=== PATIENT | male | born 1935 | race Caucasian/White ===

== ENCOUNTER → 2017-05-08 19:58 | Outpatient (CLI) | payer MEDICARE, OTHER ==
[2016-06-23 09:17] VITALS: BMI 25.1
[~2017-05-08 19:58] MED LIST: ACETAMINOPHEN325 MG PO; ADVIL200 MG PO; AMBIEN10 MG PO; BAYER CHEWABLE81 MG PO; CORDARONE200 MG PO; COREG6.25 MG PO; COUMADIN5 MG PO; FLAXSEED OIL1000 MG PO; FLOMAX0.4 MG PO; HYDROCODONE-APA1 TAB PO; IMDUR30 MG PO; LINZESS145 MCG PO; NORCO 10/325 TA1 TA1 PO; NORVASC2.5 MG PO; OSTEO BI-FLEX1 EAC1 PO; PENICILLIN V P250 MG PO; PERCOCET 10/3251 TA1 PO; PLAVIX75 MG PO; PROTONIX40 MG PO; RESTORIL15 MG PO; SYNTHROID25 MCG PO; ZOCOR20 MG PO
== END | disposition home or self-care (01) ==
LOC: D.LABREF 19:58
DX: R31.9 Hematuria, unspecified (principal)

== ENCOUNTER → 2017-05-11 14:56 | Outpatient (CLI) | payer MEDICARE, OTHER ==
[2016-06-23 09:17] VITALS: BMI 25.1
== END | disposition home or self-care (01) ==
LOC: D.CT 14:56
DX: R31.9 Hematuria, unspecified (principal)

== ENCOUNTER 2017-06-21 05:27 | Day surgery (SDC) | payer MEDICARE, OTHER ==
[~2017-06-21] VITALS: Ht 177.8 cm; Wt 79.4 kg
[~2017-06-21 05:27] MED LIST changes: +METAMUCIL1042 GM PO; +SLEEP AID25 M1 PO
[2017-06-21 06:23] VITALS: BP 145/71; Ht 177.8 cm; Wt 79.4 kg
== END 2017-06-21 08:35 | disposition home or self-care (01) ==
LOC: D.OPS 05:27 → D.PAN 07:30 → D.OPS 07:30
DX: R31.0 Gross hematuria (principal); I25.10 Atherosclerotic heart disease of native coronary artery without angina pectoris; I10 Essential (primary) hypertension; E03.9 Hypothyroidism, unspecified; G47.30 Sleep apnea, unspecified; Z95.5 Presence of coronary angioplasty implant and graft; K21.9 Gastro-esophageal reflux disease without esophagitis; Z01.812 Encounter for preprocedural laboratory examination

== ENCOUNTER → 2017-10-26 18:42 | Outpatient (CLI) | payer MEDICARE, OTHER ==
[2017-06-21 06:23] VITALS: BMI 25.1
== END | disposition home or self-care (01) ==
LOC: D.LABREF 18:42
DX: N39.0 Urinary tract infection, site not specified (principal)

== ENCOUNTER 2017-10-31 08:30 | Emergency (ER) | payer MEDICARE, OTHER ==
[2017-06-21 06:23] VITALS: BMI 25.1
== END 2017-10-31 10:37 | disposition other institution (70) ==
LOC: D.ER 08:30
DX: S00.81XA Abrasion of other part of head, initial encounter (principal); S60.511A Abrasion of right hand, initial encounter; S80.211A Abrasion, right knee, initial encounter; W19.XXXA Unspecified fall, initial encounter; Y93.89 Activity, other specified; Y92.019 Unspecified place in single-family (private) house as the place of occurrence of the external cause; S00.83XA Contusion of other part of head, initial encounter; S60.221A Contusion of right hand, initial encounter; S80.01XA Contusion of right knee, initial encounter; S02.92XA Unspecified fracture of facial bones, initial encounter for closed fracture; S01.81XA Laceration without foreign body of other part of head, initial encounter; I10 Essential (primary) hypertension

== ENCOUNTER 2018-01-19 09:14 | Emergency (ER) | payer MEDICARE, OTHER ==
[2017-06-21 06:23] VITALS: BMI 25.1
[2018-01-19 09:46] LABS: APPEARANCE TURBID (CLEAR); BILIRUBIN NEGATIVE (NEGATIVE); COLOR AMBER (YELLOW); GLUCOSE NEGATIVE (NEGATIVE); KETONE NEGATIVE (NEGATIVE); NITRITE NEGATIVE (NEGATIVE); PH 5.5 (5.0-6.0); PROTEIN 1+ mg/dL (NEGATIVE); UROBILINOGEN NORMAL (NORMAL)
[2018-01-19 09:51] LABS: BACTERIA MODERATE /hpf (NONE SEEN); EPITHELIAL CELLS 0-5 /hpf (0-5); RED CELLS - URINE >50 /hpf (0-5); WHITE CELLS - URINE >50 /hpf (0-5)
== END 2018-01-19 10:20 | disposition home or self-care (01) ==
LOC: D.ER 09:14
PROVIDERS: Emergency Medicine
DX: R31.9 Hematuria, unspecified (principal); R30.0 Dysuria; N39.0 Urinary tract infection, site not specified

== ENCOUNTER 2018-03-20 06:45 | Day surgery (SDC) | payer MEDICARE, OTHER ==
[2018-03-19 09:07] LABS: APPEARANCE CLEAR (CLEAR); BILIRUBIN NEGATIVE (NEGATIVE); COLOR YELLOW (YELLOW); GLUCOSE NEGATIVE (NEGATIVE); KETONE NEGATIVE (NEGATIVE); NITRITE NEGATIVE (NEGATIVE); PROTEIN NEGATIVE (NEGATIVE); SPECIFIC GRAVITY 1.005 (1.005-1.020); UROBILINOGEN NORMAL (NORMAL)
[2018-03-19 09:07] LABS: BASOPHILS 0.5 % (0-2); EOSINOPHILS 1.1 % (0-7); HEMATOCRIT 41.8 % (42.0-54.0); HEMOGLOBIN 13.9 g/dL (13.5-17.5); IMMATURE GRANULOCYTES 0.4 % (0-5); LYMPHOCYTES 23.2 % (15-50); MCH 32.1 pg (26.0-34.0); MCHC 33.3 g/dL (31.0-37.0); MCV 96.5 fL (80.0-100.0); MEAN PLATELET VOLUME 11.3 fL (7.4-10.4); MONOCYTES 8.2 % (2-11); NEUTROPHILS 66.6 % (40-80); PLATELET COUNT 102 10x3/uL (130-400); RBC 4.33 10x6/uL (4.20-6.10); RDW 14.5 % (11.5-14.5); WBC 5.5 10x3/uL (4.8-10.8)
[2018-03-19 09:09] LABS: WHITE CELLS - URINE 0-5 /hpf (0-5)
[2018-03-19 09:10] LABS: BACTERIA FEW /hpf (NONE SEEN)
[2018-03-19 09:19] LABS: ANION GAP 10.7 mmol/L (8-16); CALCIUM 8.8 mg/dL (8.5-10.1); CARBON DIOXIDE 28.5 mmol/L (21.0-32.0); CREATININE - SERUM 1.3 mg/dL (0.6-1.3); POTASSIUM - SERUM 4.2 mmol/L (3.5-5.1)
[~2018-03-20] VITALS: Ht 177.8 cm; Wt 79.8 kg
--- NOTE | ~2018-03-20 | OP ---
PATIENT NAME: ARMAND JOHNSON MEDICAL RECORD: [id number] :34 LOCATION:D[facility] ADMISSION DATE: SURGEON: LANCE SAUL MD DATE OF OPERATION: 03/20/2018 SURGEON: Lance Saul MD ANESTHESIA: General anesthesia by Dr. John Austin. DIAGNOSIS: Obstructive BPH. PROCEDURES: Cystoscopy, GreenLight laser transurethral resection of the prostate, power 80 parker, laser on time 4 minutes 47 seconds, energy 22,546 kilojoules. FINDINGS: Previous TURP, but signs of obstructive bilateral lateral lobe hyperplasia. Single ureteral orifices bilaterally. No bladder tumors. CLINICAL HISTORY: This is an 83-year-old male, who has a history of BPH. He had a TURP with the GreenLight laser 8 years ago. Recently he developed hematuria and I performed cystoscopy on him in June of 2017. This showed regrowth of his BPH. He did not have any bladder tumors. He has a trabeculated bladder with cellules. Single ureteral orifices are seen. He was kept on finasteride and tamsulosin. He has been developing recurrent urinary tract infections, at least 2 this year. He has some urgency and frequency as well as diminished flow. Nocturia times 1. When we checked his postvoid residual, it was 87 mL. Since he keeps having recurrent urinary tract infections, this is an indication for a repeat TURP. After his first TURP, he developed erectile dysfunction. He blames his TURP for causing his erectile dysfunction. He has an inflatable penile implant. He is allergic to MORPHINE and TICLID. He was given ampicillin/sulbactam 3 grams IV educational adviser to the OR. DESCRIPTION OF PROCEDURE: The patient was given induction of general anesthesia. He was then placed into dorsal lithotomy position and prepped and draped. I worked with his penile prosthesis to make sure that the prosthetic cylinders were fully deflated. The scope was then introduced. Urethra is normal with no strictures. Going into the prostatic urethra, the verumontanum has been previously resected. The lateral lobes are obstructive and they meet in the midline. The bladder neck is relatively open. Going into the bladder itself, single ureteral orifices are seen at some distance away from the bladder neck. The bladder was trabeculated, but no bladder tumors were seen. We then introduced the laser fiber and resecting from the bladder neck to the region where the verumontanum would have been. We started resecting on the posterior wall. Once we got to the pseudocapsule on the posterior wall, then each of the lateral lobes in turn was taken down to the pseudocapsule. The tissue responded very well to the laser energy and we did not need to increase the laser energy levels during the case. No bleeding of any kind was encountered during the entire procedure. At the end of the procedure, a wide open channel was seen going from the level of the external urinary sphincter all the way through to the bladder neck. Going back into the bladder, we could see intact ureteral orifices bilaterally. The scope was then removed. A 22-Kenyan 3-way Jarvis catheter was inserted into the bladder. The balloon was inflated with 20 cc of sterile water. A catheter inflow plug was put into the inflow port. We then put the catheter to bag drainage. The patient will go home today with a Jarvis catheter to bag drainage. I will see him in followup tomorrow to have the OPERATIVE REPORT [id number] ARMAND JOHNSON catheter removed for voiding trial. TRANSINT:[id number] Voice Confirmation ID: [id number] DOCUMENT ID: [id number] LANCE SAUL MD at 1234 CC: [id number] DICTATION DATE: 03/20/18 1014 DRILL FOREMAN: 03/20/18 1047 REG [facility] [address] [place] [address]
[~2018-03-20 06:45] MED LIST changes: +PROSCAR5 MG PO
[2018-03-20 07:49] VITALS: BP 140/71; Ht 177.8 cm; Wt 79.8 kg
== END 2018-03-20 13:25 | disposition home or self-care (01) ==
LOC: D.OPS 06:45 → D.PAN 11:30 → D.OPS 13:25
PROVIDERS: Anesthesiology
DX: N40.1 Benign prostatic hyperplasia with lower urinary tract symptoms (principal); N13.8 Other obstructive and reflux uropathy; Z01.812 Encounter for preprocedural laboratory examination

== ENCOUNTER 2018-03-21 19:25 | Emergency (ER) | payer MEDICARE, OTHER ==
[~2018-03-21] VITALS: Ht 177.8 cm; Wt 7.7 kg
[2018-03-21 20:02] VITALS: Ht 177.8 cm; Wt 7.7 kg
[2018-03-21 21:48] VITALS: BP 155/74
== END 2018-03-21 21:50 | disposition home or self-care (01) ==
LOC: D.ER 19:25
DX: R33.9 Retention of urine, unspecified (principal)

== ENCOUNTER → 2018-07-02 12:50 | Outpatient (CLI) | payer MEDICARE, OTHER | END | disposition home or self-care (01) | LOC: D.RAD 12:50 | DX: R13.10 Dysphagia, unspecified (principal) ==

== ENCOUNTER 2018-09-25 06:50 | Emergency (ER) | payer MEDICARE, OTHER ==
[~2018-09-25] VITALS: Ht 177.8 cm; Wt 79.5 kg
[2018-09-25 06:57] VITALS: Ht 177.8 cm; Wt 79.5 kg
[2018-09-25 07:44] LABS: BASOPHILS 0.4 % (0-2); EOSINOPHILS 0.7 % (0-7); HEMATOCRIT 40.2 % (42.0-54.0); HEMOGLOBIN 13.3 g/dL (13.5-17.5); IMMATURE GRANULOCYTES 0.7 % (0-5); LYMPHOCYTES 23.9 % (15-50); MCH 31.6 pg (26.0-34.0); MCHC 33.1 g/dL (31.0-37.0); MCV 95.5 fL (80.0-100.0); MEAN PLATELET VOLUME 10.6 fL (7.4-10.4); NEUTROPHILS 67.3 % (40-80); RBC 4.21 10x6/uL (4.20-6.10); RDW 14.7 % (11.5-14.5); WBC 5.4 10x3/uL (4.8-10.8)
[2018-09-25 07:47] LABS: PLATELET COUNT 125 10x3/uL (130-400)
[2018-09-25 07:56] LABS: APTT 34.3 SECONDS (22.8-39.4); INR 0.99 (0.85-1.17); PROTIME 12.6 SECONDS (11.6-15.0)
[2018-09-25 08:00] LABS: ALBUMIN 3.1 g/dL (3.4-5.0); ALKALINE PHOSPHATASE 74 U/L (46-116); ALT (SGPT) 17 U/L (10-68); BILIRUBIN - TOTAL 0.74 mg/dL (0.2-1.3); CALC OSMOLALITY 288 mosm/kg (275-300); CALCIUM 8.3 mg/dL (8.5-10.1); CARBON DIOXIDE 27.9 mmol/L (21.0-32.0); CHLORIDE - SERUM 108 mmol/L (98-107); CREATININE - SERUM 1.3 mg/dL (0.6-1.3); GLUCOSE 93 mg/dL (74-106); PROTEIN - SERUM 6.8 g/dL (6.4-8.2); SODIUM 144 mmol/L (136-145); UREA NITROGEN 18 mg/dL (7-18); eGFR NON AFRICAN AMERICAN 56 mL/min (90-120)
[2018-09-25 08:26] LABS: CREATINE KINASE 311 UL (21-232); TROPONIN-I < 0.017 ng/mL (0.000-0.060)
[2018-09-25 08:28] LABS: CKMB 2.9 U/L (0.0-3.6)
[2018-09-25 09:01] VITALS: BP 158/65
== END 2018-09-25 09:02 | disposition other institution (70) ==
LOC: D.ER 06:50
PROVIDERS: Family Medicine
DX: I63.9 Cerebral infarction, unspecified (principal); G81.91 Hemiplegia, unspecified affecting right dominant side

== ENCOUNTER → 2018-10-15 09:31 | Outpatient (CLI) | payer MEDICARE, OTHER ==
[2018-09-25 06:57] VITALS: BMI 25.1
--- NOTE | 2018-10-16 16:39 | ST ---
PATIENT:ARMAND JOHNSON MEDICAL RECORD: [id number] SEX: M LOCATION:[facility] ORDER #: ADMISSION DATE: 10/15/18 AGE OF PATIENT: 83 REFERRING PHYSICIAN: INTERPRETING PHYSICIAN: GARRY CORREA MD DATE OF SERVICE: 10/15/2018 PROCEDURE: Nuclear Stress Test. INDICATION: Angina, coronary artery disease, hypertension, and hyperlipidemia. DESCRIPTION: He was exercised on standard Lexiscan protocol with 31 mCi of sestamibi injected at peak stress, 10 mCi were used previously for rest images. FINDINGS: Gated SPECT reveals preserved ejection fraction at 60% with decreased thickening and brightening throughout the inferior segments. SPECT IMAGING: Cardiolite was used as myocardial perfusion agent. There is a fixed perfusion defect inferiorly. This includes the basal, mid, apical, inferior segments. This is compatible with previous inferior myocardial infarction. There is no evidence of reversible changes in the remaining segments or with homogeneous uptake at rest and stress. OVERALL IMPRESSION: This is an abnormal nuclear stress test only in that it shows a fixed perfusion defect inferiorly. No evidence of ongoing ischemia. Continue medical management of the coronary artery disease and cardiac risk factors. TRANSINT:[id number] Voice Confirmation ID: [id number] DOCUMENT ID: [id number] GARRY CORREA MD at 1639 CC: [id number] DICTATION DATE: 10/15/18 1612 WATER FABRICATOR OPERATOR: 10/16/18 0744 [facility] CLI 10/15/18 [id number] [place] [address]
== END | disposition home or self-care (01) ==
LOC: D.HCCARDIO 09:31
DX: I25.119 Atherosclerotic heart disease of native coronary artery with unspecified angina pectoris (principal); I10 Essential (primary) hypertension; E78.5 Hyperlipidemia, unspecified

== ENCOUNTER → 2018-11-13 08:01 | Outpatient (CLI) | payer MEDICARE, OTHER ==
[2018-09-25 06:57] VITALS: BMI 25.1
== END | disposition home or self-care (01) ==
LOC: D.RAD 08:01
DX: Z12.11 Encounter for screening for malignant neoplasm of colon (principal); K64.9 Unspecified hemorrhoids

== ENCOUNTER 2019-04-11 08:46 | Outpatient (CLI) | payer MEDICARE, OTHER ==
[~2019-04-11] VITALS: Ht 177.8 cm; Wt 77.3 kg
--- NOTE | ~2019-04-11 | HEMODYNAMI ---
PATIENT:ARMAND JOHNSON MEDICAL RECORD: [id number] : 33 LOCATION:[facility] ADMISSION DATE: 04/11/19 Generatedon:04/11/201911:31 Patient name: ARMAND JOHNSON Patient #: [id number] SSN: : Date of study: 04/11/2019 Page: Of Hemodynamic Procedure Report Patient Data Patient Demographics Procedure consent was obtained First Name: ARMAND Gender: Male Last Name: ALEX : 1935 Middle Initial: LES Age: 84 year(s) Patient #: [id number] Race: Additional ID: [id number] Contact details Address: [address] [place] [address] State: [place] City: [place] Zip code: [address] Past Medical History Allergies Allergen Reaction Date Comments Reported Morphine 04/11/2019 Admission Admission Data Admission Date: 04/11/2019 Admission Time: 8:46 Lab Results Lab Result Date: 04/11/2019 Lab Result Time: 0:00 Biochemistry Name Units Result Min Max BUN mg/dl 20 --(----)*- 7 18 Creatinine mg/dl 1.2 --(---*)-- 0.6 1.3 eGFR ml/min 61.09573 *-(----)-- 90 120 NONAFRICAN CBC Name Units Result Min Max Hemoglobin g/dl 13.5 --(*---)-- 13.5 17.5 Procedure Procedure Types Cath Procedure Diagnostic Procedure LHC LHC w/Coronaries FFR/IVUS Intra-Coronary IVUS Initial PCI Procedure Coronary Stent Coronary Stent Initial x2 Procedure Description Procedure Date Procedure Date: 04/11/2019 Procedure Start Time: 10:47 Procedure End Time: 11:30 Procedure Staff Name Function Liam Brooks MD Performing Physician Dylan Olea RT Monitor Terell Hardin RN Nurse Leeanne Riddle RT Scrub Procedure Data Cath Procedure Fluoroscopy Diagnostic fluoroscopy Total fluoroscopy Time: time: 12.9 min 12.9 min Diagnostic fluoroscopy Total fluoroscopy dose: dose: 2058 mGy 2058 mGy Contrast Material Contrast Material Type Amount (ml) Isovue 300 193 Entry Location Entry Primary Successful Side Size Upsize Upsize Entry Closure Succes sful Closure Location (Fr) 1 (Fr) 2 (Fr) Remarks Device Remarks Femoral 5 Fr 6 Fr 7 Fr Exoseal artery Short Short Estimated blood loss: 10 ml Diagnostic catheters Device Type Used For End Catheter Placement MULTIPACK Pigtail 5 Fr Procedure catheter MULTIPACK JL 4.0 5Fr Procedure catheter MULTIPACK 3DRC 5Fr Procedure catheter Procedure Medications Medication Administration Route Dosage Oxygen etCO2 Nasal cannula 2 l/min Heparin Flush Bag added to field 2 bags (1000units/500ml NS) 0.9% NaCl I.V. 100 ml/hr Lidocaine 2% added to field 20 Fentanyl I.V. 50 mcg Versed I.V. 1 mg Heparin Bolus I.V. 4000 units Hemodynamics Rest HGB: 13.5 (g/dl) Heart Rate: 46 (bpm) Pressure Samples Time Site Value (mmHg) Purpose Heart Use Rate(bpm) 10:48 LV 132/6,13 Snapshot 49 Snapshots Pre Cath Intra NCS Post Cath Vital Signs Time Heart Resp SPO2 etCO2 NIBP (mmHg) Rhythm Pain Sedation Rate (ipm) (%) (mmHg) Status Level (bpm) 10:35:33 46 16 97 28.4 136/62(79) NSR 0 (11) 10(A) , No pain 10:40:20 45 17 98 0 143/68(84) NSR 0 (11) 10(A) , No pain 10:44:07 51 17 94 39.6 137/55(111) NSR 0 (11) 10(A) , No pain 10:48:54 49 16 98 32.9 141/69(107) NSR 0 (11) 9(A) , No pain 10:53:27 47 17 98 36.7 134/65(109) NSR 0 (11) 9(A) , No pain 10:57:55 47 16 98 33.7 132/67(102) NSR 0 (11) 9(A) , No pain 11:02:38 49 17 97 0.7 130/61(102) NSR 0 (11) 9(A) , No pain 11:07:06 48 16 96 34.4 131/61(83) NSR 0 (11) 9(A) , No pain 11:11:04 50 17 98 33.7 140/68(84) NSR 0 (11) 9(A) , No pain 11:15:40 50 16 98 29.9 144/69(95) NSR 0 (11) 9(A) , No pain 11:19:40 50 16 98 25.4 144/69(87) NSR 0 (11) 10(A) , No pain 11:24:06 48 17 98 31.4 146/71(88) NSR 0 (11) 10(A) , No pain 11:26:35 48 16 98 31.4 145/68(84) NSR 0 (11) 10(A) , No pain 11:30:29 48 17 98 28.4 131/71(94) NSR 0 (11) 10(A) , No pain Medications Time Medication Route Dose Verified Delivered Reason Notes Effectiveness by by 10:36:06 Oxygen etCO2 2 Liam Figueredo Per physician Nasal l/min Todd Hardin RN cannula 10:36:14 Heparin Flush added 2 Liam Figueredo used for Bag to bags Todd Hardin RN procedure (1000units/500ml field NS) 10:36:28 0.9% NaCl I.V. 100 Liam Figueredo Per physician ml/hr Todd Hardin RN 10:36:36 Lidocaine 2% added 20ml Liam Figueredo used for to vial Todd Hardin RN procedure field 10:46:29 Fentanyl I.V. 50 Liam Yañezy for sedation mcg Todd Hardin RN 10:46:36 Versed I.V. 1 mg Liam Figueredo for sedation Todd Hardin RN 11:00:13 Heparin Bolus I.V. 4000 Liam Figueredo for units Todd Hardin RN anticoagulation Procedure Log Time Note 10:15:40 Terell Hardin RN sent for patient. Start room use. 10:32:49 Informed consent obtained and on chart 10:32:54 Diagnostic Cath Status : Elective 10:34:11 Vital chart was started 10:34:52 Time tracking: Regular hours (M-F 7:00 - 5:00) 10:34:58 Plan of Care:Hemodynamics will remain stable., Cardiac rhythm will remain stable., Comfort level will be maintained., Respiratory function will remain adequate., Patient/ family verbilizes understanding of procedure., Procedure tolerated without complication., Recovers from procedure without complications.. 10:35:13 Patient received from Pre/Post Procedure Room to CCL 2 Alert and oriented. Tansferred to table in Supine position. 10:35:15 Warm blankets applied, and janie hugger turned on for patient comfort. 10:35:16 Correct patient and procedure confirmed by team. 10:35:18 ECG and BP/O2 sat monitors applied to patient. 10:36:06 Oxygen 2 l/min etCO2 Nasal cannula was administered by Terell Hardin RN; Per physician; 10:36:14 Heparin Flush Bag (1000units/500ml NS) 2 bags added to field was administered by Terell Hardin RN; used for procedure; 10:36:28 0.9% NaCl 100 ml/hr I.V. was administered by Terell Hardin RN; Per physician; 10:36:36 Lidocaine 2% 20ml vial added to field was administered by Terell Hardin RN; used for procedure; 10:39:10 Baseline sample Acquired. 10:39:13 Rhythm: sinus bradycardia 10:39:29 Full Disclosure recording started 10:40:19 H&P Date Dictated: 04/11/2019 New H&P dictated by physician.. 10:40:34 Pre-procedure instructions explained to patient. 10:40:35 Pre-op teaching completed and patient verbalized understanding. 10:40:39 Family in waiting room. 10:40:42 Patient NPO since Midnight. 10:40:49 Patient allergic to Morphine 10:40:58 Is the patient allergic to Iodine/contrast media? No. 10:41:09 Is patient on blood thinner?Yes 10:41:13 ACC The patient was administered the following blood thiners within the last 24 hours: ACCAspirin, ACCPlavix 10:41:17 Patient diabetic? No. 10:41:21 ----Pre-sedation anethsthesia assessment.---- 10:41:24 Previous problem with sedation/anesthesia? No ? 10:41:26 Snore? Yes 10:41:27 Sleep apnea? No 10:41:30 Deviated septum? No 10:41:31 Opens mouth fully? Yes 10:41:32 Sticks out tongue? Yes 10:41:50 Airway obstruction? No ? 10:41:53 Dentures? No ? 10:41:59 Pre procedure: right dorsailis pedis pulse 2+ Normal; easily identifiable; not easily obliterated 10:42:03 Patient pain scale 0/10 ?. 10:42:17 IV patent on arrival in left hand with 0.9% NaCl at O. 10:45:26 Lab Result : BUN 20 mg/dl :45: Lab Result : Creatinine 1.2 mg/dl 10:45: Lab Result : eGFR NONAFRICAN 61.00186 ml/min 10:45: Lab Result : Hemoglobin 13.5 g/dl 10:45:29 Lab results completed and on chart. 10:45:33 Right groin area was prepped with chlora-prep and draped in sterile fashion 10:45:35 Alarms reviewed by R. N. 10:45:35 Sharps counted by scrub and verified by R.N. 10:45:37 Physician arrived 10:45:38 --------ALL STOP TIME OUT------ 10:45:39 Final Timeout: patient, procedure, and site verified with staff and physician. All members of the team are in agreement. 10:45:43 Right groin site verified by team. 10:45:47 Fire Safety Assessment: A--An alcohol-based skin anteseptic being used preoperatively., C--Open oxygen or nitrous oxide is being used., D--An ESU, laser, or fiber-optic light is being used. 10:45:51 Physical assessment completed. ASA score P 2 - A patient with mild systemic disease as per Liam Brooks MD. 10:45:57 2) 60-89 Mildly reduced kidney function, and other findings (as for stage 1) point to kidney disease. 10:46:22 Maximum allowable contrast does (3.7 X eGFR X 0.75)169 ml. 10:46:27 Sedation plan: IV Moderate Sedation Medication:Versed, Fentanyl 10:46:29 Fentanyl 50 mcg I.V. was administered by Terell Hardin RN; for sedation; 10:46:33 Use device set Femoral Dx 10:46:35 ACIST Syringe (54537) opened to sterile field. 10:46:36 Versed 1 mg I.V. was administered by Terell Hardin RN; for sedation; 10:46:36 Bag Decanter (2002S) opened to sterile field. 10:46:36 Medline Cath Pack ([id number]) opened to sterile field. 10:46:38 ACIST Hand Control (52207) opened to sterile field. 10:46:39 ACIST Manifold (56696) opened to sterile field. 10:46:41 DIAGNOSTIC Multipack 5Fr catheter set (BI7294) opened to sterile field. 10:46:42 Tegaderm 4 x 4 (1626W) opened to sterile field. 10:46:45 SHEATH 5FR [place] (SDX206) opened to sterile field. 10:46:46 EMERALD Guide Wire (670-133) opened to sterile field. 10:47:40 Procedure started. 10:47:45 Local anesthetic to right femoral artery with Lidocaine 2% by Liam Brooks MD.INITIAL ACCESS ONLY 10:47:54 A 5 Fr sheath was inserted into the Femoral artery 10:48:01 A MULTIPACK Pigtail 5 Fr catheter was advanced over the wire and used for Procedure. 10:48:07 Zero performed for pressure channel P1 10:48:09 Zero performed for pressure channel P1 10:48:11 Zero performed for pressure channel P1 10:48:31 LV hemodynamics recorded. 10:48:33 LV gram done using MCNAMARA 10:48:42 EF : 40 % 10:48:46 Catheter removed. 10:49:34 A MULTIPACK JL 4.0 5Fr catheter was advanced over the wire and used for Procedure. 10:49:36 LCA angiography performed. 10:50:54 Catheter removed. 10:52:09 A MULTIPACK 3DRC 5Fr catheter was advanced over the wire and used for Procedure. 10:52:11 RCA angiography performed. 10:52:12 Catheter removed. 10:52:16 Use device set [facility] PCI 10:52:33 SHEATH 6FR [place] (UNI887) opened to sterile field. 10:52:38 INFLATOR Merit BasixCompak (OG4869) opened to sterile field. 10:52:48 GUIDE 6FR XBLAD 3.5 catheter (50006958) opened to sterile field. 10:52:55 Sheath upsized to a 6 Fr Short. 10:53:02 Pre PCI Site: [place] mCirc has 90% stenosis. 10:53:09 6 Fr XBLAD 3.5 guide catheter was inserted over the wire 10:54:18 Guide Catheter removed. unable to cannulate vessel. 10:54:20 GUIDE 6FR XBLAD 4.0 catheter (78514119) opened to sterile field. 10:54:24 6 Fr XBLAD 4 guide catheter was inserted over the wire 10:55:34 GRAPHIX 182cm guide wire ([id number]) opened to sterile field. 10:55:56 Guide Catheter removed. unable to cannulate vessel. 10:55:59 SHEATH 7FR [place] (IMK946) opened to sterile field. 10:57:59 Sheath upsized to a 7 Fr Short. 10:58:05 7 Fr EBU 3.5 guide catheter was inserted over the wire 10:59:20 PT GRAPHIX wire advanced. 11:00:13 Heparin Bolus 4000 units I.V. was administered by Terell Hardin RN; for anticoagulation; 11:01:59 Place stent Inflation Number: 1 A LUIS MIGUEL RX 2.25 x 15 stent ([id number]) was prepped and advanced across the 1st Ob Bernie 90. The stent was deployed at 15 JOHNNY for 0:10 (min:sec) 0. 11:02:16 Inflation number: 2 The stent balloon was then re-inflated across the 1st Ob Bernie 0 to 19 JOHNNY for 0:10 (min:sec) . 11:02:29 Stent catheter was removed intact over wire. 11:02:30 Wire removed. 11:02:31 Guide catheter removed. 11:03:22 [place] Verrata Plus pressure wire (13591U) opened to sterile field. 11:03:55 GUIDE 6FR AR 2.0 catheter (PG2QR83) opened to sterile field. 11:04:09 6 Fr AR 2 guide catheter was inserted over the wire 11:07:25 PRESSURE wire advanced. 11:11:07 Wire removed. damaged. 11:11:35 [place] Verrata Plus pressure wire (59194W) opened to sterile field. 11:12:15 PRESSURE wire advanced. 11:13:26 Wire removed. unable to cross lesion. 11:13:43 GRAPHIX wire advanced. 11:14:55 [place] IVUS Catheter (33256B) opened to sterile field. 11:15:26 IVUS catheter advanced over wire. 11:18:00 IVUS pass to RCA lesion performed. 11:18:01 IVUS catheter removed over wire. 11:18:11 70% 11:18:47 Place stent Inflation Number: 1 A LUIS MIGUEL RX 2.5 x 30 stent ([id number]) was prepped and advanced across the Dist RCA 70. The stent was deployed at 23 JOHNNY for 0:10 (min:sec) 0. 11:20:17 Stent catheter was removed intact over wire. 11:24:19 Wire removed. 11:24:20 Guide catheter removed. 11:25:07 Procedure type changed to Cath procedure, Diagnostic procedure, LHC, LHC w/Coronaries, FFR/IVUS, Intra-Coronary IVUS Initial, PCI procedure, Coronary Stent, Coronary Stent Initial x2 11:25:27 EXOSEAL 7Fr (EX700) opened to sterile field. 11:25:48 Sheath removed intact; hemostasis achieved with Exoseal to the Femoral artery. 11:25:51 Procedure ended.(Physican Out) 11:26:14 Fluoroscopy time 12.90 minutes. 11:26:20 Fluoroscopy dose: 2058 mGy 11:26:20 Flurop Dose total: 2057 11:26:33 Contrast amount:Isovue 300 193ml. 11:26:35 Sharps counted by scrub and verified by R.N. 11:29:07 Insertion/operative site no bleeding no hematoma. 11:29:11 Post-op/insertion site Right Femoral artery dressed using a 4 x 4 and Tegaderm. 11:29:14 Post right femoral artery:stable 11:29:23 Post procedure: right dorsailis pedis pulse 2+ Normal; easily identifiable; not easily obliterated. 11:29:27 Post-procedure physical assessment completed. ASA score P 2 - A patient with mild systemic disease as per Liam Brooks MD. 11:29:37 Post procedure rhythm: sinus bradycardia 11:29:42 Estimated blood loss: 10 ml 11:29:46 Post procedure instruction explained to patient.Patient verbalizes understanding. 11:29:47 Patient needs reinforcement of post procedure teaching. 11:29:48 Procedure and supply charges have been captured, reviewed, submitted and are correct. 11:30:15 Vital chart was stopped 11:30:16 See physician's report for complete and final results. 11:30:19 Report given to Pre/Post Procedure Room. 11:30:23 Patient transfered to Pre/Post Procedure Room with Stretcher. 11:30:27 Procedure ended. 11:30:27 Full Disclosure recording stopped 11:30:31 End room use (Document Last) Intervention Summary Intervention Notes Time ActionType Lesion and Equipment Used Action# Pressure Duration Attributes 11:01:59 Place stent 1st Ob Bernie LUIS MIGUEL RX 2.25 x 1 15 00:10 15 stent ([id number]) 11:02:16 Reinflate 1st Ob Bernie LUIS MIGULE RX 2.25 x 2 19 00:10 stent 15 stent balloon ([id number]) 11:18:47 Place stent Dist RCA LUIS MIGUEL RX 2.5 x 1 23 00:10 30 stent ([id number]) Device Usage Item Name Manufacture Quantity Catalog Number Hospital Part Current Minimal Lot# / Charge Number Stock Stock Serial# Code ACIST Syringe Acist 1 78340 247883 759891 736773 20 (89632) Medical Systems Inc Bag Decanter Microtek 1 2001S 276669 93578 358391 5 (2001S) Medical Inc. Medline Cath Medline 1 [id number] 500381 67850 068662 5 Pack ([id number]) ACIST Hand Acist 1 42992 957997 905750 986497 5 Control Medical (94129) Systems Inc ACIST Manifold Acist 1 84724 105454 818695 234422 5 (46878) Medical Systems Inc DIAGNOSTIC Cardinal 1 TT1303 015621 26255 215180 30 Multipack 5Fr Health catheter set (OW2855) Tegaderm 4 x 4 3M 1 1626W 202787 445316 150593 5 (1626W) SHEATH 5FR Terumo 1 ULO143 590674 213600 574853 5 [place] (XXQ530) EMERALD Guide Cardinal 1 502-455 106827 134938 453071 5 Wire (502-455) Health MULTIPACK Cardinal 1 326811 5 Pigtail 5 Fr Health catheter MULTIPACK JL Cardinal 1 516039 5 4.0 5Fr Health catheter MULTIPACK 3DRC Cardinal 1 212083 5 5Fr catheter Health SHEATH 6FR Terumo 1 RYX764 042600 658661 462337 40 [place] (BSO280) INFLATOR Merit Merit 1 HI5897 801676 446671 455719 15 BasixCompak Medical (FC2020) GUIDE 6FR Cardinal 1 [id number] 388940 466457 030667 10 XBLAD 3.5 Health catheter (60450660) GUIDE 6FR Cardinal 1 21521074 383799 460986 119453 3 XBLAD 4.0 Health catheter (43666253) GRAPHIX 182cm [place] 1 [id number] 828551 135677 675711 5 guide wire Scientific (2173056Q8) SHEATH 7FR Terumo 1 LPO150 931511 426575 840900 5 [place] (ACW598) LUIS MIGUEL RX 2.25 x Medtronic 1 [id number] 434408 0550273 023857 5 [id number] 15 stent ([id number]) [place] 2 17146Q 622189 261037404 048446 5 Verrata Plus pressure wire (59619F) GUIDE 6FR AR Medtronic 1 AT0IJ87 086875 31537 696488 1 2.0 catheter (MC3IW87) [place] 1 36914F 443380 940448 789824 8 [place] IVUS Catheter (14562N) LUIS MIGUEL RX 2.5 x Medtronic 1 [id number] 692348 2834519 934658 5 [id number] 30 stent ([id number]) EXOSEAL 7Fr Cardinal 1 EX700 195204 869942 326555 5 (EX700) Health Signature Audit [place] Stage Time Signature Unsigned Intra-Procedure 04/11/2019 Dylan Olea 11:31:48 AM RT(R) (CV) Signatures Monitor : Dylan Olea RT Signature : Date : Time : [facility] [address] [place] [address]
[2019-04-11] MEDS ORDERED: PLAVIX75 MG PO (09:17)
[2019-04-11] MEDS ORDERED: COZAAR50 MG PO (09:18)
[2019-04-11] MEDS ORDERED: MAGNESIUM OXID250 MG PO (09:18)
[2019-04-11] MEDS ORDERED: NORVASC5 MG PO (09:19)
[2019-04-11] MEDS ORDERED: SYNTHROID200 MC1 PO (09:20)
[2019-04-11 09:32] VITALS: BP 145/67; Ht 177.8 cm; Wt 77.3 kg
[2019-04-11 09:47] LABS: BASOPHILS 0.5 % (0-2); EOSINOPHILS 1.4 % (0-7); HEMOGLOBIN 13.5 g/dL (13.5-17.5); IMMATURE GRANULOCYTES 0.2 % (0-5); LYMPHOCYTES 27.6 % (15-50); MCH 32.3 pg (26.0-34.0); MCHC 33.8 g/dL (31.0-37.0); MCV 95.7 fL (80.0-100.0); MEAN PLATELET VOLUME 10.8 fL (7.4-10.4); MONOCYTES 5.7 % (2-11); NEUTROPHILS 64.6 % (40-80); PLATELET COUNT 114 10x3/uL (130-400); RBC 4.18 10x6/uL (4.20-6.10); RDW 14.3 % (11.5-14.5); WBC 5.7 10x3/uL (4.8-10.8)
[2019-04-11 09:56] LABS: ANION GAP 10.6 mmol/L (8-16); CALCIUM 8.9 mg/dL (8.5-10.1); CARBON DIOXIDE 28.1 mmol/L (21.0-32.0); CREATININE - SERUM 1.2 mg/dL (0.6-1.3); POTASSIUM - SERUM 3.7 mmol/L (3.5-5.1)
--- NOTE | 2019-04-11 11:49 | NUR ---
1140 RECEIVED PT FROM AMUSEMENT OR RECREATION CARD CHECKER. PT IS ALERT, DENIES ANY C/O PAIN OR NAUSEA. DRESSING TO RIGHT GROIN IS CDI, PEDAL PULSES 2+. SINUS BARBARA, RATE 49, BP SI 148/68. HOB FLAT, PT INSTRUCTED TO KEEP HEAD FLAT TO PILLOW AND RIGHT LEG STRAIGHT AND VERBALIZES UNDERSTANDING. AT BEDSIDE, CALL LIGHT IN REACH.
--- NOTE | 2019-04-11 12:10 | NUR ---
PT JULISSA SIPS OF PO FLUIDS, HAD VOIDED 300 CC CLEAR YELLOW URINE. DRESSING CDI RIGHT GROIN, PEDAL PULSES PALPABLE. VSS, HOB IS FLAT, AT BEDSIDE.
--- NOTE | 2019-04-11 12:35 | NUR ---
PT ALERT, DENIES ANY C/O CHEST PAIN. DRESSING IS CDI TO RIGHT GROIN, PEDAL PULSES PALAPABLE. HOB IS FLAT, FAMILY AT BEDSIDE. PT HAS VOIDED 400 CC TO URINAL. JULISSA PO FLUIDS.
--- NOTE | 2019-04-11 13:10 | NUR ---
CRACKERS AND PUDDING SERVED. PT DENIES ANY C/O CHEST PAIN. DRESSING CDI TO RIGHT GROIN, PEDAL PULSES PALPABLE. VSS, HOB IS FLAT, DR CORREA HAS ROUNDED.
--- NOTE | 2019-04-11 13:58 | NUR ---
PT HAS TOLERATED CRACKERS AND PUDDING WITH NO C/O. IS ALERT AND DENIES ANY C/O CHEST PAINS. SINUS BARBARA WITH RATES DIPPING IN THE 30'S, REVIEWED WITH DR CORREA AND ORDER RECEIVED TO INSTRUCT PT TO DECREASE AMIODARONE TO 100 MG Q HS. DRESSING REMAINS CDI, PULESES PALPABLE.
--- NOTE | 2019-04-11 14:27 | NUR ---
PT ALERT AND DENIES ANY C/O. EKG OBTAINED AND REVIEWED WITH DR CORREA. ORDERS RECEIVED TO INSTRUCT PT TO DISCONTINUE AMIODARONE AT HOME AND OKAY FOR DC TO HOME. PT BP REMAINS STABLE, PT ASYMPTOMATIC WITH BRADYCARDIA. HOB ELEVATED 30 DEGREES AND SANDWICH SERVED. DRESSING REMAINS CDI, PEDAL PULSES PALPABLE.
--- NOTE | 2019-04-11 15:00 | NUR ---
PT IS ALERT, DENIES ANY C/O CHEST PAIN OR NAUSEA. DRESSING CDI RIGHT GROIN, HOB FULLY ELEVATED. PT HAS TOLERATED SANDWICH. VOIDED ADDITIONAL 600 CC CLEAR YELLOW URINE TO URINAL. SINUS BARBARA AT 44, BP IS 123/58. AT BEDSIDE.
--- NOTE | 2019-04-11 15:42 | NUR ---
1520 DRESSING CDI. PT ALERT AND DENIES ANY C/O. SINUS BARBARA AT 48, BP IS 118/55. IV DC'D WITH CATH INTACT. DC INSTRUCTIONS REVIEWED WITH PT AND WHO VERBALIZE UNDERSTANDING. PT VERBALIZES UNDERSTANDING OF INSTRUCTION TO DC AMIODARONE. 1535 ASSISSTED PT WITH DRESSING FOR DC TO HOME. IS ALERT AND DENIES ANY C/O. PT ESCORTED TO PRIVATE AUTO VIA WC BY NURSE WITH DRIVING HIM HOME.
--- NOTE | 2019-04-14 18:38 | HP ---
PATIENT: ARMAND HINKLE MEDICAL RECORD: [id number] ACCOUNT: [id number] LOCATION:[place] : 33 ADMISSION DATE: 04/11/19 PCP: BERRY MERCEDES MD HISTORY AND PHYSICAL EXAMINATION DATE OF ADMISSION: 04/11/2019 DIAGNOSES: 1. Unstable angina class III. 2. Coronary artery disease. 3. Previous PTCA and stent. 4. Paroxysmal atrial fibrillation, controlled in sinus rhythm on amiodarone. 5. Hypertension. 6. Hyperlipidemia. HISTORY OF PRESENT ILLNESS: Mr. Hinkle has been having increasing episodes of chest pain and chest discomfort compatible with angina. He began having this in October. We did a nuclear stress test and this was abnormal; however, was mildly abnormal. His symptomatology has rapidly progressed in the past 3-4 weeks to episodes of rest discomfort, like that of his previous angina. Last cardiac intervention was in 2012. He is on optimal medical therapy with beta-sonny, calcium channel sonny, and ARB; and had the addition of long-acting nitrate, but continues to have progression of his symptomatology. He has heart rates in the 50s and his systolic blood pressure is 100; hence, there is no room to work with continued medical management and he is progressing his symptoms in an unstable fashion. PHYSICAL EXAMINATION: GENERAL APPEARANCE: Well-nourished, well-developed, appears stated age. Level of distress, comfortable. PSYCHIATRIC: Mental status, alert, normal affect. Orientation, oriented to time, place and person. EYES: Lids and conjunctiva, noninjected. No discharge, no pallor. ENT: Lips, teeth, gums, normal dentition. Oropharynx, no cyanosis, no pallor. NECK: Carotid arteries, bilateral normal upstroke, no bruits, no thrills. JUGULAR VEINS: No jugular venous pressure or distention. CERVICAL LYMPH NODES: Nontender, nonenlarged. THYROID: Not enlarged. Nontender. No nodules. LUNGS: Respiratory effort, unlabored. CHEST: Normal curvature. No thoracic deformity. No chest wall tenderness. Percussion, resonant. Auscultation, clear. No wheezes, no rales, no rhonchi. CARDIOVASCULAR: Precordial exam, nondisplaced. No heaves or pericardial thrills. Rate and rhythm, regular. Heart sounds, normal S1, normal S2. No S3, no gallop, no rub. Systolic murmur, not heard. Diastolic murmur, not heard. EXTREMITIES: No cyanosis, no edema. Peripheral pulses, full and equal in all extremities, except as noted. No bruits appreciated. ABDOMEN: Soft, nondistended. Normal aorta. No bruit. Nontender. No masses. Liver, nontender, no hepatomegaly. Spleen, nontender, no splenomegaly. MUSCULOSKELETAL: No joint tenderness. No joint swelling. No erythema. NEUROLOGICAL: Normal gait, normal strength, normal tone. SKIN: Warm and dry. OVERALL IMPRESSION: Unstable anginal symptomatology class III to IV with optimal medical management with continued progression of symptomatology in already abnormal nuclear stress test. We will proceed with coronary HISTORY AND PHYSICAL [id number] ARMAND HINKLE angiography. Further care depends upon findings of the angiography. TRANSINT:[id number] Voice Confirmation ID: [id number] DOCUMENT ID: [id number] GARRY CORREA MD at 1838 CC: [id number] DICTATION DATE: 04/09/19 1535 INSTRUMENT TECHNICIAN HELPER: 04/09/19 1559 DEP CLI 04/11/19 [facility] [address] [place] [address]
--- NOTE | 2019-04-14 18:38 | OP ---
PATIENT NAME: ARMAND JOHNSON MEDICAL RECORD: [id number] :33 LOCATION:D.CAT ADMISSION DATE: SURGEON: GARRY CORREA MD DATE OF OPERATION: 04/11/2019 DATE OF SERVICE: 04/11/2019 PROCEDURES: 1. PTCA stent RCA. 2. PTCA stent left circumflex. 3. Intravascular ultrasound. 4. Left heart catheterization. 5. Selective coronary angiography. 6. Left ventriculogram. INDICATION: Angina and coronary artery disease. PROCEDURE IN DETAIL: After informed consent was obtained and after detailed explanation of risks, benefits as well as alternative therapies, the patient elected to proceed with angiogram and angioplasty. The right femoral area was prepped and draped in normal sterile fashion. Right femoral artery was cannulated via modified Seldinger technique with placement of 7-Arabic sheath. All catheters exchanged through this sheath. FINDINGS: Left ventriculogram was performed in standard 30-degree MCNAMARA view, reveals mildly depressed ejection fraction at 40% to 45%. SELECTIVE CORONARY ANGIOGRAPHY: 1. Left main is with no significant angiographic disease. 2. Left anterior descending has moderate irregularities, but no flow-limiting stenosis. Previously placed stents are widely patent. 3. Left circumflex has 90% stenosis of the obtuse marginal. 4. The right coronary has greater than 70% stenosis in the mid vessel. We tried to get the IFR wire down this; however, it would not pass the lesion. Intravascular ultrasound revealed a greater than 80% stenosis at this point. PTCA STENT OF THE LEFT CIRCUMFLEX: The stent used was a 2.25 x 15 mm Anish. Result was 0% residual stenosis. PTCA STENT OF THE RCA: The stent used was a 2.5 x 30 mm [place]. Result was 0% residual stenosis. OVERALL IMPRESSION: Successful percutaneous transluminal coronary angioplasty stent of the right coronary artery and left circumflex, both going from 80% to 90% initial stenosis to 0% residual. TRANSINT:[id number] Voice Confirmation ID: [id number] DOCUMENT ID: [id number] OPERATIVE REPORT [id number] JOHNSONNARCISAARMANDGARRY SUE MD at 1838 CC: [id number] DICTATION DATE: 04/11/19 1136 DIRECTOR BUSINESS DEVELOPMENT: 04/11/19 1225 DEP CLI 04/11/19 [facility] [address] [place] [address]
== END 2019-04-11 15:35 | disposition home or self-care (01) ==
LOC: D.CATH 08:46
PROVIDERS: ATTEND Internal Medicine Interventional Cardiology
DX: I25.119 Atherosclerotic heart disease of native coronary artery with unspecified angina pectoris (principal); Z01.812 Encounter for preprocedural laboratory examination
CPT/HCPCS: C9600 ×2; 93458; 92978

== ENCOUNTER 2019-09-03 11:45 | Inpatient (IN) | payer MEDICARE, OTHER ==
[~2019-09-03] VITALS: Ht 177.8 cm; Wt 79.4 kg
--- NOTE | ~2019-09-03 | DS ---
PATIENT:ARMAND HINKLE :33 MEDICAL RECORD: [id number] DISCHARGE SUMMARY ADMISSION DATE: 09/04/19 DISCHARGE DATE: 09/05/19 DISCHARGE DIAGNOSES: 1. Symptomatic bradycardia. 2. Angina. 3. Coronary artery disease. 4. Previous percutaneous transluminal coronary angioplasty stent. 5. Hypertension. 6. Hyperlipidemia. HOSPITAL COURSE: Mr. Hinkle presents with anginal symptomatology; however, he had no new significant coronary artery disease. He was very bradycardic in the 30, symptomatic with the bradycardia, underwent permanent pacemaker placement and was discharged home with no change in his medications, follow up with [facility] in 1 month. TRANSINT:[id number] Voice Confirmation ID: [id number] DOCUMENT ID: [id number] GARRY CORREA MD CC: [id number] DICTATION DATE: 09/05/19928 REGIONAL PROGRAM MANAGER: 09/06/19312 DIS IN 09/05/19 [facility] [address] [place] [id number]
--- NOTE | ~2019-09-03 | OP ---
PATIENT NAME: ARMAND JOHNSON MEDICAL RECORD: [id number] :33 LOCATION:D.M2 D.2116 ADMISSION DATE: SURGEON: GARRY CORREA MD DATE OF OPERATION: 09/04/2019 PROCEDURES: 1. Left heart catheterization. 2. Selective coronary angiography. 3. Left ventriculogram. INDICATION: Angina, bradycardia, coronary artery disease. PROCEDURE IN DETAIL: After informed consent was obtained and after a detailed description of risks, benefits as well as alternative therapies, the patient elected to proceed with angiogram and heart catheterization. The right femoral area was prepped and draped in normal sterile fashion. The right femoral artery was cannulated via modified Seldinger technique with placement of 5-Moroccan sheath. All catheters exchanged through this sheath. FINDINGS: Left ventriculogram was performed in standard 30-degree MCNAMARA view reveals preserved cardiac wall motion, ejection fraction at 50%. SELECTIVE CORONARY ANGIOGRAPHY: 1. Left main is with no significant angiographic disease. 2. Left anterior descending has multiple previously placed stents. These are widely patent with no significant restenosis. No disease elsewise throughout the LAD or its branches. 3. Left circumflex has mild irregularities. No flow limiting stenosis. 4. The right coronary has multiple previously placed stents. These are widely patent. The PLV is chronically totally occluded, but fills via collaterals off the circumflex. It is unchanged from previous angiography. OVERALL IMPRESSION: Wide patency of all the previously placed stents, no disease elsewise. Center medical management on treatment of the bradycardia. TRANSINT:[id number] Voice Confirmation ID: [id number] DOCUMENT ID: [id number] GARRY CORREA MD CC: [id number] DICTATION DATE: 09/04/19853 RODEO PERFORMER: 09/04/19 0946 [facility] [address] [id number]
[~2019-09-03 11:45] MED LIST changes: +COZAAR50 MG PO; +MAGNESIUM OXID250 MG PO; +NORVASC5 MG PO; +SYNTHROID200 MC1 PO
[2019-09-03 12:45] LABS: HEMATOCRIT 37.8 % (42.0-54.0); HEMOGLOBIN 12.4 g/dL (13.5-17.5); LYMPHOCYTES 28.5 % (15-50); MCH 30.8 pg (26.0-34.0); MCHC 32.8 g/dL (31.0-37.0); MCV 93.8 fL (80.0-100.0); NEUTROPHILS 62.8 % (40-80); PLATELET COUNT 99 10x3/uL (130-400); RBC 4.03 10x6/uL (4.20-6.10); RDW 13.4 % (11.5-14.5); WBC 5.1 10x3/uL (4.8-10.8)
[2019-09-03 12:47] LABS: APTT 38.5 SECONDS (22.8-39.4); INR 1.11 (0.85-1.17); PROTIME 13.8 SECONDS (11.6-15.0)
[2019-09-03 12:50] LABS: ALBUMIN 3.5 g/dL (3.4-5.0); ALKALINE PHOSPHATASE 88 U/L (46-116); ALT (SGPT) 18 U/L (10-68); AMYLASE - SERUM 72 U/L (25-115); BILIRUBIN - TOTAL 1.55 mg/dL (0.2-1.3); CALC OSMOLALITY 280 mosm/kg (275-300); CALCIUM 8.6 mg/dL (8.5-10.1); CARBON DIOXIDE 25.9 mmol/L (21.0-32.0); CHLORIDE - SERUM 107 mmol/L (98-107); CKMB 2.9 U/L (0.0-3.6); CREATINE KINASE 157 UL (21-232); CREATININE - SERUM 1.2 mg/dL (0.6-1.3); GLUCOSE 98 mg/dL (74-106); LIPASE 124 U/L (73-393); MAGNESIUM - SERUM 2.2 mg/dL (1.8-2.4); PRO BNP 167 pg/mL (0-450); PROTEIN - SERUM 6.7 g/dL (6.4-8.2); SODIUM 141 mmol/L (136-145); TROPONIN-I < 0.017 ng/mL (0.000-0.060); UREA NITROGEN 12 mg/dL (7-18); eGFR NON AFRICAN AMERICAN 61 mL/min (90-120)
[2019-09-03 13:02] LABS: APPEARANCE CLEAR (CLEAR); BILIRUBIN NEGATIVE (NEGATIVE); COLOR YELLOW (YELLOW); GLUCOSE NEGATIVE (NEGATIVE); KETONE NEGATIVE (NEGATIVE); NITRITE NEGATIVE (NEGATIVE); PROTEIN NEGATIVE (NEGATIVE); SPECIFIC GRAVITY 1.005 (1.005-1.020); UROBILINOGEN NORMAL (NORMAL)
[2019-09-03 13:18] VITALS: BP 128/64
[2019-09-03 14:48] VITALS: BP 127/62
--- NOTE | 2019-09-03 14:50 | NUR ---
REPORT CALLED TO ALFRED GONZALEZ
--- NOTE | 2019-09-03 15:00 | NUR ---
TRANSPORTED TO ROOM#2116 VIA RN, CONDITION STABLE
--- NOTE | 2019-09-03 15:04 | NUR ---
TRANSFER FROM ER BY STRETCHER. OREINTED TO ROOM. CALL LIGHT IN REACH. WILL CONT. PLAN OF CARE.
[2019-09-03 15:33] VITALS: BP 139/63; BMI 25.1
[2019-09-03 16:32] VITALS: Ht 177.8 cm; Wt 79.4 kg
[2019-09-03 19:00] VITALS: BP 116/53
--- NOTE | 2019-09-03 19:15 | NUR ---
RECEIVED BEDSIDE REPORT. PATIENT IS ALERT AND ORIENTED, RESTING COMFORTABLY IN BED. RESPIRATIONS ARE EVEN AND UNLABORED. NO S/S OF DISTRESS. NO C/O PAIN. NEEDS MET. CALL LIGHT WITHIN REACH. WILL CPOC.
[2019-09-03 19:47] LABS: CKMB 2.8 U/L (0.0-3.6); CREATINE KINASE 163 UL (21-232); TROPONIN-I < 0.017 ng/mL (0.000-0.060)
[2019-09-04] VITALS (18 sets, daily range): BP systolic 105–144; BP diastolic 49–83
[2019-09-04 00:49] LABS: CKMB 1.6 U/L (0.0-3.6); CREATINE KINASE 122 UL (21-232); TROPONIN-I < 0.017 ng/mL (0.000-0.060)
--- NOTE | 2019-09-04 01:18 | NUR ---
PATIENT RESTING COMFORTABLY IN BED. RESPIRATIONS ARE EVEN AND UNLABORED. NO S/S OF DISTRESS. NO C/O PAIN. CALL LIGHT WITHIN REACH.
--- NOTE | 2019-09-04 06:01 | NUR ---
PATIENT SHOWERED AND PREPPED FOR HEART CATH.
[2019-09-04 06:54] LABS: ALBUMIN 3.4 g/dL (3.4-5.0); ALKALINE PHOSPHATASE 90 U/L (46-116); ALT (SGPT) 19 U/L (10-68); BILIRUBIN - TOTAL 1.43 mg/dL (0.2-1.3); CALCIUM 8.6 mg/dL (8.5-10.1); CARBON DIOXIDE 25.7 mmol/L (21.0-32.0); CHLORIDE - SERUM 108 mmol/L (98-107); CKMB 1.9 U/L (0.0-3.6); CREATINE KINASE 139 UL (21-232); CREATININE - SERUM 1.1 mg/dL (0.6-1.3); GLUCOSE 85 mg/dL (74-106); POTASSIUM - SERUM 4.3 mmol/L (3.5-5.1); PROTEIN - SERUM 6.6 g/dL (6.4-8.2); SODIUM 140 mmol/L (136-145); eGFR NON AFRICAN AMERICAN 67 mL/min (90-120)
[2019-09-04 07:00] LABS: CALC OSMOLALITY 278 mosm/kg (275-300); TROPONIN-I < 0.017 ng/mL (0.000-0.060); UREA NITROGEN 16 mg/dL (7-18)
--- NOTE | 2019-09-04 07:15 | NUR ---
RECEIVED PT IN BED AAOX4 RESP UNLABORED SKIN W/D COLOR WNL DENIES ANY PAIN OR DISCOMFORT AT THIS TIME NAD NOTED WILL CONTINUE TO MONITOR
--- NOTE | 2019-09-04 07:39 | NUR ---
PREOP MEDICATIONS GIVEN AT THIS TIME
[2019-09-04 07:43] LABS: HEMATOCRIT 38.7 % (42.0-54.0); HEMOGLOBIN 12.9 g/dL (13.5-17.5); LYMPHOCYTES 24.4 % (15-50); MCH 31.1 pg (26.0-34.0); MCHC 33.3 g/dL (31.0-37.0); MCV 93.3 fL (80.0-100.0); MEAN PLATELET VOLUME 11.7 fL (7.4-10.4); NEUTROPHILS 66.4 % (40-80); PLATELET COUNT 104 10x3/uL (130-400); RBC 4.15 10x6/uL (4.20-6.10); RDW 13.5 % (11.5-14.5); WBC 4.8 10x3/uL (4.8-10.8)
[2019-09-04 09:45] LABS: APTT 39.5 SECONDS (22.8-39.4); INR 1.13 (0.85-1.17)
--- NOTE | 2019-09-04 13:23 | NUR ---
ASSESSMENT DONE SEE FLOW SHEET VSS. WILL CONTINUE TO MONITOR.
[2019-09-04 14:52] LABS: PLT FUNCT.(P2Y12) PLAVIX 148 PRU (194-418)
--- NOTE | 2019-09-04 17:00 | NUR ---
1500 REASSESSMENT DONE SEE FLOW SHEET VSS. 1700 IO COLLECTED. PARTIAL BED BATH GIVEN. VSS.
--- NOTE | 2019-09-04 19:20 | NUR ---
REC'D TO CARE, BEDSIDE REPORT DONE. PT ALERT AND ORIENTED, VSS. L CHEST PPM SITE C/D/I, SLING ON. PT VOIDED 275ML CLEAR, YELLOW URINE IN URINAL. DENIES PAIN OR NEEDS. C/L IN REACH.
--- NOTE | 2019-09-04 19:45 | NUR ---
PT UP TO BR, MINIMAL ASSIST. REPORTS BM, DREA-CARE PER PT. BACK IN BED, WARM BLANKET AND FRESH WATER PROVIDED. C/L IN REACH.
--- NOTE | 2019-09-04 20:47 | NUR ---
SPOKE WITH DR. CORREA RE: HOME MEDS. ORDER REC'D FOR ONE TIME [place], HE WOULD ADDRESS HOME MEDS TOMORROW.
--- NOTE | 2019-09-04 21:39 | NUR ---
NO VISITORS, PT GIVEN PRN NORCO PER REQUEST - SEE EMAR.
--- NOTE | 2019-09-04 23:20 | NUR ---
REASSESSMENT PER FLOWSHEET, NO ACUTE CHANGES. VSS. PT DENIES NEEDS.
[2019-09-05] VITALS (9 sets, daily range): BP systolic 107–145; BP diastolic 60–81
--- NOTE | 2019-09-05 02:20 | NUR ---
PT UP IN CHAIR PER REQUEST. VSS. C/L IN REACH.
--- NOTE | 2019-09-05 03:13 | NUR ---
REASSESSMENT PER FLOWSHEET, NO ACUTE CHANGES. PT REMAINS UP IN CHAIR. VSS.
--- NOTE | 2019-09-05 05:11 | NUR ---
PT RESTING WITH EYES CLOSED, UP IN CHAIR. VSS. C/L IN REACH.
--- NOTE | 2019-09-05 05:35 | NUR ---
PT COOPERATIVE WITH AM BLOOD DRAW.
--- NOTE | 2019-09-05 07:49 | OP ---
PATIENT NAME: ARMAND JOHNSON MEDICAL RECORD: [id number] :33 LOCATION:DAYAAN DMarina05 ADMISSION DATE:09/04/19 SURGEON: KEL FLOYD MD DATE OF OPERATION: 09/04/2019 SURGEON: Kel Floyd MD DIRECTOR DATA: None. PROCEDURE PERFORMED: Insertion of dual-chamber permanent pacemaker. PREOPERATIVE DIAGNOSIS: Sinus bradycardia. POSTOPERATIVE DIAGNOSIS: Complete heart block. ANESTHESIA: Monitored anesthesia care and intravenous sedation with local 1% Xylocaine. COMPLICATIONS: None. BLOOD LOSS: Minimal. SPECIMENS: None. CONDITION: Stable. DISPOSITION: Recovery room. OPERATIVE FINDINGS: Appropriate pacing and sensing thresholds, underlying atrial rate was 80 with ventricular escape rate at about 40. INDICATION: Bradycardia. PROCEDURE IN DETAIL: The patient was brought to the operating suite, prepped and draped. A 1% Xylocaine used for local anesthetic. Subcutaneous pocket was created. Left subclavian vein was cannulated twice. Dilator and introducer system were placed and the leads were placed. First, a ventricular lead was placed with a screw in lead, appropriate pacing and sensing thresholds. Suture sleeve was sutured in place and the atrial J wire was used and the screw in lead was placed twice to obtain good pacing and sensing thresholds. Again, the suture sleeve was used to connect the leads from dislodgement. They were then connected to the pacemaker generator. Thorough antibiotic irrigation was performed. The leads were carefully coiled below the pacemaker. The fluoroscopy was again used to determine an adequate amount of slack and lines and then the wound was closed in 3 layers. Dermabond on the skin. Needle and sponge counts reported as correct. The patient to recovery room in stable condition. TRANSINT:[id number] Voice Confirmation ID: [id number] DOCUMENT ID: [id number] OPERATIVE REPORT [id number] ARMAND JOHNSON KEL FLOYD MD at 0749 CC: GARRY CORREA [id number] DICTATION DATE: 09/04/19 1318 [employer] ARTILLERY: 09/04/19 1357 ADM IN [facility] [address] [place] [address]
--- NOTE | 2019-09-05 08:08 | NUR ---
[employer] AT BEDSIDE- INTEREGATED PACEMAKER-REVIEWED WITH DR MCCAULEY-LOW RATE ADJUSTED TO 60-HIGH REMAINS AT 110-NOTED ATRIAL PACED-STRESSED BY [employer] REP TO USE L ARM SLING FOR 2 WEEKS AND EXPLAINED TO PT TO INSURE PACER WIRES ADHERE CORRECTLY-MUSCLE TO L ARM CAN CAUSE DISLODGEMENT-PT UP IN CHAIR AND MADE COMMENT WELL THEN MY L ARM MUSCLE WILL GET WEAK-
--- NOTE | 2019-09-05 08:50 | NUR ---
REVIEWED POST OP AND DISCHARGE TEACHING WITH PT -LITERATURE USED -HIGH LIGHTED-AND PRESENT-FINAL QUESTION TO BE ADDRESSED WITH DR CORREA SERVICES-IF OK TO TRAVEL PRIOR TO SEP [id number] APPEARED TO COMPREHEND-REASON FOR SLING AND 14DAY REQUEST TO USE-
--- NOTE | 2019-09-05 09:13 | NUR ---
DR CORREA PG'D FOR DISCHARGE ORDERS
--- NOTE | 2019-09-05 09:27 | HP ---
PATIENT: ARMAND HINKLE MEDICAL RECORD: [id number] ACCOUNT: [id number] [facility] ADMISSION DATE: 09/04/19 PCP: No PCP HISTORY AND PHYSICAL EXAMINATION DIAGNOSES: 1. Angina. 2. Bradycardia. 3. Coronary artery disease. 4. Previous percutaneous transluminal coronary angioplasty stent. 5. Hypertension. 6. Hyperlipidemia. HISTORY OF PRESENT ILLNESS: Mr. Hinkle presents with increasing episodes of chest pain, chest discomfort compatible with angina, class IV rest pain. He had severe pain today while at home. Last cardiac intervention was . He as well has been bradycardic to the 30s. He is on no AV blocking medication. CURRENT MEDICATIONS: Amlodipine, simvastatin, losartan, aspirin, and Plavix. PHYSICAL EXAMINATION: CONSTITUTIONAL/GENERAL APPEARANCE: Well nourished, well developed, appears stated age. EYES: Lids and conjunctivae noninjected. No discharge. No pallor. ENT: Lips within normal limit. No cyanosis. No pallor. NECK: Carotid arteries, bilateral normal upstroke. No bruits. No thrills. No jugular venous pressure or distention. CERVICAL LYMPH NODES: Nontender. Nonenlarged. THYROID: Not enlarged. No nodules. CARDIOVASCULAR: Precordial exam, nondisplaced. No heaves or pericardial thrills. Rate and rhythm, regular. Heart sounds, normal S1, normal S2. No S3, no gallop, no rub. Systolic murmur, not heard. Diastolic murmur, not heard. RESPIRATORY: Respiratory effort, unlabored. Normal curvature. No thoracic deformity. No chest wall tenderness. Percussion, resonant. Auscultation, clear. No wheezes, no rales, no rhonchi. ABDOMEN: Soft, nondistended, nontender. No abdominal pain, no vomiting and normal appetite. MUSCULOSKELETAL: No joint tenderness, normal gait, normal tone. SKIN: Warm and dry. OVERALL IMPRESSION: Unstable angina associated with bradycardia. At this time, his EKG suggests lateral ischemia. We will proceed with coronary angiography in the a.m. If he does not have any hemodynamically significant stenosis that would explain his bradycardia, he is on no AV blocking medication with heart rates into the 30s, we will need a permanent pacemaker evaluation. TRANSINT:[id number] Voice Confirmation ID: [id number] DOCUMENT ID: [id number] HISTORY AND PHYSICAL [id number] ARMAND HINKLE JEFFREY MD at 0927 CC: [id number] DICTATION DATE: 09/03/19 164 ACADEMIC ADVISER: 09/03/19 [address] [facility] [address] [place] [address]
--- NOTE | 2019-09-05 10:31 | NUR ---
DISCHARGED PER DR CORREA AND INSTRUCTED BY DR CORREA TO CONTINUE SAME MEDICINE WITH NO CHANGES TO HOME MED LIST [facility] AND REVIEWED CARE AND FOLLOW UP APPT-WITH PT -VIA WHEELCHAIR
--- NOTE | 2019-09-05 16:38 | MORECARE ---
CASE MANAGEMENT DISCHARGE SUMMARY PATIENT: ARMAND HINKLE UNIT: [id number] ADM DATE: 09/04/19 AGE: 84 : 34 SEX: M [facility] AUTHOR: KATHI CORONA PHYSICIAN: REFERRING PHYSICIAN: GARRY CORREA MD DATE OF SERVICE: 09/05/19 Discharge Plan Patient Name: ARMAND [facility]INKLE [facility] [facility] 1935 Planned Disposition: Home Anticipated Discharge Date: Discharge Date: 09/05/2019 Expected LOS: Initial Reviewer: [email or web address] Initial Review Date: 09/05/2019 Generated: 09/05/19 5:37 pm Coverage Notice Reviewer: [email or web address] Bart Rosario Notice Issued Date-Time: 09/03/2019 14:00 Notice Type: Medicare Outpatient Observation Notice Notice Delivered To: Family Member Relationship to Patient: Spouse Fitness And Wellness Coordinator Name: Lisa Hinkle Delivery Method: HAND - Hand Delivered Cecilia Days: Prior Verbal Notification: Recipient Understood Notice: Recipient Signature: Yes Med Rec Note Co-signed by Attending: Coverage Notice Comment: KENNEDY delivered to patient and spouse, signed by spouse Lisa Hinkle. Original given to spouse and also placed on chart. Patient Name: ARMAND HINKLE Page [phone] at 1638 All edits/amendments must be made on the electronic document DICTATION DATE: 09/05/19 1637 REACH TRUCK OPERATOR: ROSALINE 09/05/19 1637 RPT#: [id number] DC DATE:09/05/19 STATUS: DIS IN [facility] [address] [place] [address] END OF REPORT
--- NOTE | 2019-09-05 16:59 | MORECARE ---
CASE MANAGEMENT DISCHARGE SUMMARY PATIENT: ARMAND HINKLE UNIT: [id number] ADM DATE: 09/04/19 AGE: 84 : 34 SEX: M ROOM/BED: D.[facility] AUTHOR: CHLOE,DOC PHYSICIAN: REFERRING PHYSICIAN: GARRY CORREA MD DATE OF SERVICE: 09/05/19 Discharge Plan Patient Name: ARMAND HINKLE Facility: [facility]:[place] : 1935 Planned Disposition: Home Anticipated Discharge Date: Discharge Date: 09/05/2019 Expected LOS: Initial Reviewer: [email or web address] Initial Review Date: 09/05/2019 Generated: 09/05/19 5:59 pm Comments DCP- Discharge Planning Updated by [email or web address]: Natali Malcolm on 09/05/19 3:[address] LATE ENTRY - 09/05/19 Patient Name: ARMAND HINKLE Admission Status: ER Accout number: [id number] Admission Date: 09-04-2019 : 1935 Admission Diagnosis: Attending: AIDAN OCRREA Current LOS: 1 Anticipated DC Date: Planned Disposition: Home Primary Insurance: MEDICARE A & B Discharge Planning Comments: CM met with patient at bedside after explaining CM role and obtaining verbal consent. Patient lives at home with his where he is independent with his care and plans to return there upon discharge. Patient feels this would be a safe discharge. CM discussed availability / needs of home health and medical equipment. Patient denies any discharge needs at this time. Patient states he will have his family drive him home upon discharge. CM will continue to follow and assist as needed with discharge planning / needs. Counter Clerk: Natali Malcolm DCPIA - Discharge Planning Initial Assessment Updated by [email or web address]: Natali Mlacolm on 09/05/19 4:51 pm * Is the patient Alert and Oriented? Yes * How many steps to enter\exit or inside your home? * PCP NO PCP * Pharmacy [facility] * Preadmission Environment Home with Family * ADLs Independent * Equipment None * List name and contact numbers for known caregivers / representatives who currently or will assist patient after discharge: LISA HINKLE - SPOUSE - [phone] * Verbal permission to speak to the caregivers and representatives has been obtained from the patient. Yes * Community resources currently utilized None * Additional services required to return to the preadmission environment? No * Can the patient safely return to the preadmission environment? Yes * Has this patient been hospitalized within the prior 30 days at any hospital? No Coverage Notice Reviewer: [email or web address] Bart Rosario Notice Issued Date-Time: 09/03/2019 14:00 Notice Type: Medicare Outpatient Observation Notice Notice Delivered To: Family Member Relationship to Patient: Spouse Process Tank Tender Name: Lisa Hinkle Delivery Method: HAND - Hand Delivered Cecilia Days: Prior Verbal Notification: Recipient Understood Notice: Recipient Signature: Yes Med Rec Note Co-signed by Attending: Coverage Notice Comment: KENNEDY delivered to patient and spouse, signed by spouse Lsia Hinkle. Original given to spouse and also placed on chart. Last DP export: 09/05/19 3:38 p Patient Name: ARMAND HINKLE Page [phone] at 1655 All edits/amendments must be made on the electronic document DICTATION DATE: 09/05/191657 PEBBLE MILL OPERATOR: ROSALINE 09/05/191657 RPT#: [id number] DC DATE:09/05/19 STATUS: DIS IN [facility] [address] [place] [address] END OF REPORT
== END 2019-09-05 10:34 | disposition home or self-care (01) | DRG 244 ==
LOC: D.M2 → D.ER 11:45 → EDBD 11:45 → D.M2 11:45 → D.ER 14:17 → EDSTATUS 14:19 → D.M2 14:26 → D.CVICU 09-04 12:07
PROVIDERS: Family Medicine; Thoracic Surgery (Cardiothoracic Vascular Surgery); ADMIT Internal Medicine Interventional Cardiology; ATTEND Internal Medicine Interventional Cardiology
PROC: 0JH606Z Insertion of Pacemaker, Dual Chamber into Chest Subcutaneous Tissue and Fascia, Open Approach (ICD-10-PCS; 2019-09-04)
PROC: 02HK3JZ Insertion of Pacemaker Lead into Right Ventricle, Percutaneous Approach (ICD-10-PCS; 2019-09-04)
PROC: 02H63JZ Insertion of Pacemaker Lead into Right Atrium, Percutaneous Approach (ICD-10-PCS; 2019-09-04)
PROC: B2151ZZ Fluoroscopy of Left Heart using Low Osmolar Contrast (ICD-10-PCS; 2019-09-04)
PROC: 4A023N7 Measurement of Cardiac Sampling and Pressure, Left Heart, Percutaneous Approach (ICD-10-PCS; 2019-09-04)
PROC: B2111ZZ Fluoroscopy of Multiple Coronary Arteries using Low Osmolar Contrast (ICD-10-PCS; principal; 2019-09-04 08:00)
DX: I44.2 Atrioventricular block, complete (principal); I25.119 Atherosclerotic heart disease of native coronary artery with unspecified angina pectoris; R00.1 Bradycardia, unspecified; I10 Essential (primary) hypertension; E78.5 Hyperlipidemia, unspecified

== ENCOUNTER → 2020-01-14 13:42 | Outpatient (CLI) | payer MEDICARE, OTHER ==
[2019-09-28 10:22] VITALS: BMI 24.4
[~2020-01-14 13:42] MED LIST changes: +LYRICA50 MG PO; +MAGNESIUM PO; +NITROSTAT0.4 MG SL; +TRAZODONE HCL150 MG PO; +ZOCOR40 MG PO
== END | disposition home or self-care (01) ==
LOC: D.CT 13:42 → D.RAD 01-19 08:30
PROVIDERS: ATTEND Orthopaedic Surgery
DX: S83.272A Complex tear of lateral meniscus, current injury, left knee, initial encounter (principal)